=== PATIENT | female | born 1990 | race African-American/Black ===

== ENCOUNTER 2017-05-10 12:06 | Emergency (ER) | payer MEDICAID ==
[~2017-05-10] VITALS: Ht 162.6 cm; Wt 80.0 kg
[2017-05-10] MEDS ORDERED: DIPHENHYDRAMINE 50MG/ML VIAL IM STA (12:15)
[2017-05-10] MEDS ORDERED: LORAZEPAM 2MG/ML CPJ IM STA (12:15)
[2017-05-10] MEDS ORDERED: OLANZAPINE 10 MG/VIAL IM STA (12:15)
[2017-05-10 12:37] LABS: BASOPHILS % 0.2 % (0.0-2.0); EOSINOPHILS % 1.4 % (0.0-5.0); HEMATOCRIT. 35.4 % (36.0-48.0); HEMOGLOBIN. 11.9 g/dL (12.0-16.0); LYMPHOCYTES % 46.6 % (20.0-50.0); MEAN CORPUSCULAR HEMOGLOBIN 28.3 pg (28.0-32.0); MEAN CORPUSCULAR VOLUME 84.3 fL (81.0-99.0); MEAN PLATELET VOLUME 8.8 fl (7.4-10.4); MONOCYTES % 9.3 % (2.0-8.0); NEUTROPHILS % 42.5 % (40.0-76.0); PLATELET 272 x1000/uL (130-400); RED CELL DISTRIBUTION WIDTH 12.9 % (11.6-14.6)
[2017-05-10 12:48] LABS: CARBON DIOXIDE 28 mEq/L (21-32); CHLORIDE 105 mEq/L (98-107); ETHANOL BLOOD < 10 mg/dL
[2017-05-10 19:00] VITALS: BP 105/66
== END 2017-05-10 19:43 | disposition home or self-care (01) ==
LOC: ER 12:43
DX: F15.10 Other stimulant abuse, uncomplicated (principal); R00.0 Tachycardia, unspecified; F32.9 Major depressive disorder, single episode, unspecified; F17.210 Nicotine dependence, cigarettes, uncomplicated
CPT/HCPCS: 36415; 80053; 85025; 96372; 99284; G0482; J1200; J2060; J3490; Z7610

== ENCOUNTER 2017-07-05 12:36 | Emergency (ER) | payer MEDICAID ==
[~2017-07-05] VITALS: Ht 160 cm; Wt 62.0 kg
[2017-07-05 12:58] VITALS: BP 113/86
== END 2017-07-05 16:49 | disposition left against medical advice (07) ==
LOC: ER 15:08
DX: Z53.21 Procedure and treatment not carried out due to patient leaving prior to being seen by health care provider (principal)

== ENCOUNTER 2017-09-12 20:59 | Emergency (ER) | payer MEDICAID | END 2017-09-13 01:54 | disposition left against medical advice (07) | LOC: ER 20:59 | DX: Z53.21 Procedure and treatment not carried out due to patient leaving prior to being seen by health care provider (principal) ==

== ENCOUNTER 2017-09-15 18:46 | Emergency (ER) | payer MEDICAID | END 2017-09-15 20:59 | disposition left against medical advice (07) | LOC: ER 18:46 | DX: Z53.21 Procedure and treatment not carried out due to patient leaving prior to being seen by health care provider (principal) ==

== ENCOUNTER 2017-10-01 16:31 | Emergency (ER) | payer MEDICAID ==
[~2017-10-01] VITALS: Ht 167.6 cm; Wt 65.0 kg
[2017-10-01 17:20] VITALS: BP 125/70
== END 2017-10-01 23:15 | disposition left against medical advice (07) ==
LOC: ER 16:45
DX: F15.10 Other stimulant abuse, uncomplicated (principal); Z20.2 Contact with and (suspected) exposure to infections with a predominantly sexual mode of transmission
CPT/HCPCS: 99281

== ENCOUNTER 2018-01-03 19:35 | Emergency (ER) | payer MEDICAID ==
[~2018-01-03] VITALS: Ht 165.1 cm; Wt 67.7 kg
[2018-01-03] MEDS ORDERED: DIPHENHYDRAMINE 25MG CAPSULE PO ONE (21:45)
[2018-01-03 22:18] VITALS: BP 127/71
== END 2018-01-03 22:19 | disposition home or self-care (01) ==
LOC: ER 19:35
DX: S80.862A Insect bite (nonvenomous), left lower leg, initial encounter (principal); S80.861A Insect bite (nonvenomous), right lower leg, initial encounter; F17.200 Nicotine dependence, unspecified, uncomplicated; W57.XXXA Bitten or stung by nonvenomous insect and other nonvenomous arthropods, initial encounter; Y93.89 Activity, other specified; Y92.89 Other specified places as the place of occurrence of the external cause
CPT/HCPCS: 99283; Q0163

== ENCOUNTER 2018-09-20 14:54 | Emergency (ER) | payer MEDICAID ==
[~2018-09-20] VITALS: Ht 165.1 cm; Wt 68.0 kg
[2018-09-20 16:13] LABS: CLARITY URINE CLEAR (CLEAR); COLOR URINE YELLOW (YELLOW); KETONES URINE TRACE (NEGATIVE); LEUKOCYTE ESTERASE URINE NEGATIVE (NEGATIVE); NITRITE URINE NEGATIVE (NEGATIVE); OCCULT BLOOD URINE NEGATIVE (NEGATIVE); PH URINE 6.5 (4.5-8.0); PROTEIN URINE NEGATIVE (NEGATIVE); SPECIFIC GRAVITY URINE 1.022 (1.005-1.030)
[2018-09-20 17:38] VITALS: BP 111/77
[2018-09-23 05:21] LABS: CHLAMYDIA TRACHOMATIS NAA Negative (Negative); NEISSERIA GONORRHOEAE NAA Negative (Negative)
== END 2018-09-20 17:39 | disposition home or self-care (01) ==
LOC: ER 14:54
DX: R10.9 Unspecified abdominal pain (principal); F41.9 Anxiety disorder, unspecified; F32.9 Major depressive disorder, single episode, unspecified
CPT/HCPCS: 81025; 87491; 87591; 99283

== ENCOUNTER 2019-04-07 22:19 | Emergency (ER) | payer MEDICAID ==
[~2019-04-07] VITALS: Ht 162.6 cm; Wt 64.0 kg
[2019-04-07] MEDS ORDERED: LORAZEPAM 1MG TABLET PO ONE (23:15)
[2019-04-07 23:48] LABS: BASOPHILS % 2.3 % (0.0-2.0); EOSINOPHILS % 1.7 % (0.0-5.0); HEMATOCRIT. 36.5 % (36.0-48.0); HEMOGLOBIN. 12.1 g/dL (12.0-16.0); LYMPHOCYTES % 48.9 % (20.0-50.0); MEAN CORPUSCULAR HEMOGLOBIN 28.2 pg (28.0-32.0); MEAN CORPUSCULAR VOLUME 85.4 fL (81.0-99.0); MEAN PLATELET VOLUME 9.7 fl (7.4-10.4); MONOCYTES % 7.6 % (2.0-8.0); NEUTROPHILS % 39.5 % (40.0-76.0); PLATELET 184 x1000/uL (130-400); RED BLOOD CELL COUNT 4.28 mill/uL (4.2-5.4); RED CELL DISTRIBUTION WIDTH 12.8 % (11.6-14.6)
[2019-04-07 23:56] LABS: CHLORIDE 111 mEq/L (98-107)
[2019-04-08 00:01] LABS: ETHANOL BLOOD < 10 mg/dL
[2019-04-08 00:10] LABS: HCG SCREEN NEGATIVE
[2019-04-08 01:29] LABS: *BARBITURATES SCREEN URINE NEGATIVE (NEGATIVE); *BENZODIAZEPINES SCREEN URINE NEGATIVE (NEGATIVE)
[2019-04-08 01:30] LABS: *COCAINE SCREEN URINE NEGATIVE (NEGATIVE); CANNABINOID URINE SCREEN NEGATIVE (NEGATIVE); METHADONE URINE SCREEN NEGATIVE (NEGATIVE); OPIATES URINE SCREEN NEGATIVE (NEGATIVE); PHENCYCLIDINE URINE SCREEN NEGATIVE (NEGATIVE)
[2019-04-08 01:40] LABS: *AMPHETAMINES SCREEN URINE PRESUMTIVE POSITIVE (NEGATIVE)
[2019-04-08 11:24] VITALS: BP 100/89
== END 2019-04-08 11:20 | disposition home or self-care (01) ==
LOC: ER 22:19
DX: R51 Headache (principal); F29 Unspecified psychosis not due to a substance or known physiological condition; F15.10 Other stimulant abuse, uncomplicated; F31.9 Bipolar disorder, unspecified; F20.9 Schizophrenia, unspecified; F17.200 Nicotine dependence, unspecified, uncomplicated; Z71.6 Tobacco abuse counseling
CPT/HCPCS: 36415; 80053; 80305; 80307; 80320; 80329; 81025; 84443; 84703; 85025; 93005; 99284; 99406; Z7610; G0480

== ENCOUNTER 2020-01-02 18:51 | Emergency (ER) | payer MEDICAID ==
[~2020-01-02] VITALS: Ht 165.1 cm; Wt 64.0 kg
[2020-01-02] MEDS ORDERED: ACETAMINOPHEN 325MG TABLET PO ONE (19:00)
[2020-01-02 19:32] LABS: CLARITY URINE CLOUDY (CLEAR); COLOR URINE YELLOW (YELLOW); KETONES URINE NEGATIVE (NEGATIVE); LEUKOCYTE ESTERASE URINE NEGATIVE (NEGATIVE); NITRITE URINE NEGATIVE (NEGATIVE); OCCULT BLOOD URINE NEGATIVE (NEGATIVE); PROTEIN URINE NEGATIVE (NEGATIVE); SPECIFIC GRAVITY URINE 1.024 (1.005-1.030)
[2020-01-02 20:16] VITALS: BP 133/74
== END 2020-01-02 20:17 | disposition home or self-care (01) ==
LOC: ER 18:51
DX: J02.9 Acute pharyngitis, unspecified (principal); Z20.828 Contact with and (suspected) exposure to other viral communicable diseases; F17.200 Nicotine dependence, unspecified, uncomplicated
CPT/HCPCS: 71045; 81003; 81025; 87070; 87430; 99284

== ENCOUNTER 2020-07-28 22:50 | Emergency (ER) | payer MEDICAID | END 2020-07-29 00:17 | disposition left against medical advice (07) | LOC: ER 22:50 | DX: Z53.21 Procedure and treatment not carried out due to patient leaving prior to being seen by health care provider (principal) ==

== ENCOUNTER 2020-12-31 02:21 | Inpatient (IN) | payer MEDICAID, OTHER ==
[~2020-12-31] VITALS: Ht 165.1 cm; Wt 68.0 kg
[2020-12-31] MEDS ORDERED: PENICILLIN G POTASSIUM 5 MMU in DEXT 5% WATER 100 ML IV SCH (03:00)
[2020-12-31] MEDS ORDERED: LIDOCAINE HCL 1% 20ML VIAL (Pyxis) INJ INFIL SCH (03:00)
[2020-12-31] MEDS ORDERED: MAGNESIUM 20 G PREMIX (L & D) 500 ML IV SCH (03:00)
[2020-12-31] MEDS ORDERED: LACTATED RINGERS 1,000 ML IV SCH ×2 (03:00→12:00)
[2020-12-31] MEDS ORDERED: MISOPROSTOL 100MCG TABLET VG SCH (03:00)
[2020-12-31] MEDS ORDERED: BUTORPHANOL TARTRATE 2 MG/ML VIAL IV PRN (03:00)
[2020-12-31] MEDS ORDERED: NALOXONE HCL 0.4 MG/ML 1ML VIAL IM PRN (03:00)
[2020-12-31] MEDS ORDERED: MAGNESIUM 4 G PREMIX 100 ML IV SCH (03:00)
[2020-12-31 05:04] LABS: BASOPHILS % 0.4 % (0.0-2.0); EOSINOPHILS % 0.7 % (0.0-5.0); LYMPHOCYTES % 32.1 % (20.0-50.0); MEAN CORPUSCULAR HEMOGLOBIN 27.7 pg (28.0-32.0); MEAN CORPUSCULAR VOLUME 83.1 fL (81.0-99.0); MEAN PLATELET VOLUME 10.8 fl (7.4-10.4); MONOCYTES % 6.3 % (2.0-8.0); NEUTROPHILS % 60.5 % (40.0-76.0); PLATELET 171 x1000/uL (130-400); RED BLOOD CELL COUNT 4.33 mill/uL (4.2-5.4); RED CELL DISTRIBUTION WIDTH 13.6 % (11.6-14.6)
[2020-12-31 05:05] LABS: CHLORIDE 106 mEq/L (98-107)
[2020-12-31 05:14] LABS: INR 0.9; PARTIAL THROMBOPLASTIN TIME 27.4 sec (23.4-31.0); PROTHROMBIN TIME 9.4 sec (9.6-11.0)
[2020-12-31] MEDS ORDERED: PRENATAL VITAMIN (05:17)
[2020-12-31] MEDS ORDERED: ZOLOFT (05:17)
[2020-12-31 05:18] LABS: CLARITY URINE CLEAR (CLEAR); COLOR URINE YELLOW (YELLOW); KETONES URINE 3+ (NEGATIVE); LEUKOCYTE ESTERASE URINE NEGATIVE (NEGATIVE); NITRITE URINE NEGATIVE (NEGATIVE); OCCULT BLOOD URINE 2+ (NEGATIVE); PH URINE 6.5 (4.5-8.0); PROTEIN URINE NEGATIVE (NEGATIVE); SPECIFIC GRAVITY URINE 1.022 (1.005-1.030)
[2020-12-31 05:25] LABS: HEPATITIS B SURFACE ANTIGEN NEGATIVE
[2020-12-31 05:33] LABS: *BARBITURATES SCREEN URINE NEGATIVE (NEGATIVE); *BENZODIAZEPINES SCREEN URINE NEGATIVE (NEGATIVE); *COCAINE SCREEN URINE NEGATIVE (NEGATIVE); METHADONE URINE SCREEN NEGATIVE (NEGATIVE); OPIATES URINE SCREEN NEGATIVE (NEGATIVE); PHENCYCLIDINE URINE SCREEN NEGATIVE (NEGATIVE)
[2020-12-31 05:34] LABS: CANNABINOID URINE SCREEN NEGATIVE (NEGATIVE)
[2020-12-31 06:37] LABS: *AMPHETAMINES SCREEN URINE PRESUMTIVE POSITIVE (NEGATIVE)
[2020-12-31] MEDS: DEXT 5%/LR + PITOCIN 20UNITS/L 1,000 ML IV SCH ×2 (07:44→07:58)
[2020-12-31] MEDS ORDERED: PENICILLIN G POTASSIUM 2.5 MMU in DEXTROSE 5% WATER 50 ML IV SCH (08:00)
[2020-12-31] MEDS ORDERED: LANOLIN OINT 7GM TUBE TOP PRN (09:00)
[2020-12-31] MEDS ORDERED: RHO(D) IMMUNE GLOBULIN 300 MCG/SYR IM PRN (09:00)
[2020-12-31] MEDS ORDERED: HEMORRHOIDAL SUPP PR PRN (09:00)
[2020-12-31] MEDS ORDERED: BENZOCAINE/LANOLIN/ALOE VERA SPRAY TOP PRN (09:00)
[2020-12-31] MEDS ORDERED: BISACODYL 10MG SUPP PR PRN (09:00)
[2020-12-31] MEDS ORDERED: IBUPROFEN 400MG TABLET PO PRN (09:00)
[2020-12-31] MEDS ORDERED: ACETAMINOPHEN WITH CODEINE 300/30MG TABLET PO PRN (09:00)
[2020-12-31] MEDS ORDERED: DEXT 5%/LR + PITOCIN 20UNITS/L 1,000 ML IV SCH (09:00)
[2020-12-31] MEDS ORDERED: GLYCERIN/WITCH HAZEL LEAF MEDICATED PAD TOP PRN (09:00)
[2020-12-31] MEDS ORDERED: DIPHENHYDRAMINE 25MG CAPSULE PO PRN (09:00)
[2020-12-31] MEDS ORDERED: IBUPROFEN 800MG TABLET PO PRN (09:00)
[2020-12-31] MEDS ORDERED: PRENATAL VIT/FE FUMARATE/FA TABLET PO SCH (09:15)
[2020-12-31 10:00] VITALS: BP 136/74
[2020-12-31 10:30] VITALS: BP 145/88
[2020-12-31 11:30] VITALS: BP 135/82
[2020-12-31 16:44] VITALS: BP 121/69
[2020-12-31 20:00] VITALS: BP 105/60
[2020-12-31] MEDS: MAGNESIUM/ALUMINUM HYDROXIDE/SIMETHICONE 30ML UDC PO SCH ×2 (21:00→21:23)
[2020-12-31] MEDS: SIMETHICONE 80MG TABLET CHEW PO SCH ×2 (21:00→21:23)
[2020-12-31] MEDS: DOCUSATE SODIUM 100MG CAPSULE PO SCH (21:00)
[2021-01-01 03:00] VITALS: BP 102/50
[2021-01-01 07:03] LABS: BASOPHILS % 0.4 % (0.0-2.0); HEMATOCRIT. 32.5 % (36.0-48.0); HEMOGLOBIN. 10.5 g/dL (12.0-16.0); LYMPHOCYTES % 27.2 % (20.0-50.0); MEAN CORPUSCULAR HEMOGLOBIN 27.7 pg (28.0-32.0); MEAN CORPUSCULAR VOLUME 85.6 fL (81.0-99.0); MEAN PLATELET VOLUME 10.6 fl (7.4-10.4); MONOCYTES % 7.5 % (2.0-8.0); NEUTROPHILS % 63.9 % (40.0-76.0); PLATELET 166 x1000/uL (130-400); RED BLOOD CELL COUNT 3.79 mill/uL (4.2-5.4); RED CELL DISTRIBUTION WIDTH 14.1 % (11.6-14.6)
[2021-01-01] MEDS ORDERED: FERROUS SULFATE 325MG TABLET PO SCH (07:30)
[2021-01-01 08:30] VITALS: BP 108/72
[2021-01-01 15:48] VITALS: BP 114/60
[2021-01-01 20:17] VITALS: BP 121/76
[2021-01-01] MEDS: DOCUSATE SODIUM 100MG CAPSULE PO SCH (21:00)
[2021-01-01] MEDS: MAGNESIUM/ALUMINUM HYDROXIDE/SIMETHICONE 30ML UDC PO SCH (21:00)
[2021-01-01] MEDS: SIMETHICONE 80MG TABLET CHEW PO SCH (21:00)
[2021-01-02] VITALS: BP 111/67
[2021-01-02 04:00] VITALS: BP 112/68
[2021-01-02 08:00] VITALS: BP 121/64
[2021-01-02] MEDS: SIMETHICONE 80MG TABLET CHEW PO SCH (09:48)
[2021-01-02] MEDS: MAGNESIUM/ALUMINUM HYDROXIDE/SIMETHICONE 30ML UDC PO SCH (09:48)
[2021-01-08 06:10] LABS: AMPHETAMINE CONF URINE Positive (.)
== END 2021-01-02 12:05 | disposition home or self-care (01) | DRG 560 ==
LOC: OBSVTOIN 02:21 → 8 EST LDRP 02:21 → 8EST 09:41
PROVIDERS: ADMIT Specialist; ATTEND Specialist
PROC: 10E0XZZ Delivery of Products of Conception, External Approach (ICD-10-PCS; principal; 2020-12-31)
PROC: 10907ZC Drainage of Amniotic Fluid, Therapeutic from Products of Conception, Via Natural or Artificial Opening (ICD-10-PCS; 2020-12-31)
DX: O69.81X0 Labor and delivery complicated by cord around neck, without compression, not applicable or unspecified (principal); Z37.0 Single live birth; E87.1 Hypo-osmolality and hyponatremia; F16.10 Hallucinogen abuse, uncomplicated; O99.324 Drug use complicating childbirth; O03.83 Metabolic disorder following complete or unspecified spontaneous abortion; O99.284 Endocrine, nutritional and metabolic diseases complicating childbirth; O77.0 Labor and delivery complicated by meconium in amniotic fluid; Z20.822 Contact with and (suspected) exposure to COVID-19; E87.6 Hypokalemia; F15.10 Other stimulant abuse, uncomplicated; F17.200 Nicotine dependence, unspecified, uncomplicated; Z3A.37 37 weeks gestation of pregnancy
CPT/HCPCS: 36415; 76805; 76818; 80053; 80305; 80359; 81003; 84550; 85025; 85384; 86592; 86703; 86762; 86850; 86900; 87070; 87340; 87426; 96361; 99281; J0595; J2540; J2590; J3475; J7060; J7120; A4315

== ENCOUNTER 2024-03-15 09:14 | Emergency (ER) | payer MEDICAID, OTHER ==
[~2024-03-15] VITALS: Ht 165.1 cm; Wt 68.0 kg
[~2024-03-15 09:14] MED LIST: PRENATAL VITAMIN
[2024-03-15 09:26] VITALS: O2SAT 99
[2024-03-15] MEDS ORDERED: ONDA-239 PO (09:55)
[2024-03-15 10:08] VITALS: BP 142/71; PULSE 82; RESP 16; TEMP 36.83628; O2SAT 99
[2024-03-15] MEDS: ONDANSETRON 4MG ODT PO STA (10:08)
== END 2024-03-15 10:27 | disposition home or self-care (01) ==
LOC: ER 09:24
DX: N39.0 Urinary tract infection, site not specified (principal); R11.0 Nausea
CPT/HCPCS: 99283; Q0162